=== PATIENT | male | born 1970 | race Caucasian/White ===

== ENCOUNTER 2020-04-20 12:17 | Outpatient (CLI) | payer MEDICARE, SELFPAY ==
--- NOTE | ~2020-04-20 | XR_ITS ---
XR knee RT 2V DATE: 04/20/2020 12:46 INDICATION: Right knee pain and locking for years TECHNIQUE: AP and lateral views COMPARISON: None FINDINGS: No fracture or dislocation or joint effusion. Joint spaces are well preserved. No radiopaqu e intra-articular loose body or, calcinosis. No periosteal reaction or bone destruction. IMPRESSION: Negative Reviewed, dictated and finalized at location B. IMPRESSION: Negative
--- NOTE | ~2020-04-20 | XR_ITS ---
XR knee LT 2V DATE: 04/20/2020 12:45 INDICATION: Left knee pain and locking for years TECHNIQUE: AP and lateral views COMPARISON: None FINDINGS: No fracture or dislocation or joint effusion. No periosteal reaction or bone destruction. N o radiopaque intra-articular loose body or chondral calcinosis. Joint spaces are well preserved. IMPRESSION: Negative Reviewed, dictated and finalized at location B. IMPRESSION: Negative
== END 2020-04-20 12:18 | disposition home or self-care (01) ==
LOC: CHSIMG 12:21
PROVIDERS: PCP Nurse Practitioner Family; Visit Provider Nurse Practitioner Family
DX: M25.562 Pain in left knee (principal); M25.561 Pain in right knee
CPT/HCPCS: 73560

== ENCOUNTER → 2020-12-12 08:44 | Outpatient (CLI) | payer MEDICARE, SELFPAY ==
--- NOTE | ~2020-12-12 | XR_ITS ---
XR chest 2V 12/12/2020 09:00 Indication: Cough. COPD. Smoker. Type 1 diabetes. Procedure: 2 view chest Comparison: 08/10/2018 Findings: Heart size normal. No focal air space disease, pulmonary edema, pleural effusion or suspect ed pneumothorax. There are healed right rib fractures with adjacent pleural thickening. There are spi nal stimulator leads, position unchanged. There is chronic apical pleural thickening. Impression: 1: No acute cardiopulmonary disease. Reviewed, dictated and finalized at location D. Impression: 1: No acute cardiopulmonary disease.
== END ==
PROVIDERS: PCP Nurse Practitioner; Visit Provider Nurse Practitioner
DX: R06.02 Shortness of breath (principal); R05 Cough
CPT/HCPCS: 71046

== ENCOUNTER 2021-08-01 08:18 | Outpatient (CLI) | payer MEDICARE, SELFPAY ==
--- NOTE | 2021-08-16 17:33 | WPDHOMESLEEP ---
Sleep Study - Home Unattended Date of Study: 08/01/21 <Monica Li DO - Last Filed: 08/16/21 17:51> Ordering Provider: Cheri King MD <Monica Li DO - Last Filed: 08/16/21 17:51> Interpreting Provider: Monica Li DO <Monica Li DO - Last Filed: 08/16/21 17:51> Home Sleep Study Type: Watch PAT <Monica Li DO - Last Filed: 08/16/21 17:51> Height: 1.75 m <Monica Li DO - Last Filed: 08/16/21 17:51> Weight: 110.223 kg <Monica Li DO - Last Filed: 08/16/21 17:51> Body Mass Index: 35.9 <Monica Li DO - Last Filed: 08/16/21 17:51> Neck Circumference (inches): 18 <Monica Li DO - Last Filed: 08/16/21 17:51> Sarles: 7 <Monica Li DO - Last Filed: 08/16/21 17:51> Reason for Sleep Study Daytime hypersomnia, sleep eating <Monica Li DO - Last Filed: 08/16/21 17:51> Sleep History The patient is a 50-year-old male with COPD, restless leg syndrome, type 2 diabetes, chronic back pain that had a home sleep test ordered by his legal billing coordinator for daytime hypersomnia and sleep eating. The patient frequently awakens from sleep short of breath. He rarely awakens at night with heartburn, belching or cough. He constantly snores loud enough that others complain. He frequently has trouble sleeping when he has a cold. He rarely wakes up gasping for air throughout the night. He rarely has breathing problems at night observed by others. He rarely sweats of us of Radha at night. He frequently notices heart palpitations or irregular heartbeats during the night. He frequently falls asleep during the day but never while driving. He denies sleep paralysis and cataplexy. He occasionally experiences vivid dreamlike scenes upon awakening or falling asleep. He occasionally has nightmares. He rarely has thoughts racing through his mind. He denies feeling sad, depressed or anxious. He denies noticing parts of his body jerk. He denies kicking throughout the night. He denies crawling and aching feelings in his legs. He frequently has leg pain during the night. He rarely grinds teeth during the night and never awakens with jaw pain in the morning. He is frequently bothered by pain during the day and constantly awakened by pain during the night. He constantly wakes up feeling stiff in morning with sore and achy muscles. He goes to bed at 8:30 p.m. on weekdays and 10:30 p.m. on weekends. It takes him between 1 and 2 hours to fall asleep. He typically wakes up 4 times per night. When he awakens, he will smoke a cigarette. It takes him 20-30 minutes to fall asleep. He awakens at 5:00 a.m. on the weekdays and 8:00 a.m. on the weekends. He typically gets 6 hours of sleep total throughout the night. He sleeps than 2 hours segments. He will lay in bed for a few minutes after awakening in the morning. He currently lives with his and 3 children. He does not consume any caffeinated beverages within 2 hours of bedtime. He does not engage in physical exercise before bedtime. He does watch television before falling asleep. He does take naps in the afternoon or the evening but they are not refreshing. He currently smokes 3 packs of cigarettes per day. He drinks 16 cups of a caffeinated beverage per day. He drinks 2 beers per day. He denies recreational drug use. <Monica Li DO - Last Filed: 08/16/21 17:51> [facility] Past Medical History Medical History: Medical History Chronic obstructive pulmonary disease, unspecified Lumbosacral radiculopathy due to degenerative joint disease of spine Obstructive sleep apnea syndrome in adult Restless leg syndrome Spinal cord stimulator status Type 2 diabetes mellitus with diabetic neuropathy, unspecified <Monica Li, DO - Last Filed: 08/16/21 17:51> Surgical History Rodrigo
[2021-08-16 17:51] VITALS: BMI 35.9
== END 2021-08-02 16:10 | disposition home or self-care (01) ==
LOC: ANHCSM 08:23
PROVIDERS: PCP Nurse Practitioner; Visit Provider Internal Medicine Critical Care Medicine
DX: G47.33 Obstructive sleep apnea (adult) (pediatric) (principal); Z87.821 Personal history of retained foreign body fully removed; Z87.891 Personal history of nicotine dependence; Z72.821 Inadequate sleep hygiene; G47.10 Hypersomnia, unspecified
CPT/HCPCS: 95800

== ENCOUNTER → 2021-08-06 10:44 | Outpatient (CLI) | payer MEDICARE, MEDICAID, SELFPAY ==
--- NOTE | ~2021-08-06 | CT_ITS ---
EXAMINATION: CT knee RT wo con DATE: 08/06/2021 11:08 INDICATION: Right knee pain. TECHNIQUE: Computed tomography (CT) of the right knee was performed without intravenous contrast. Aut omated exposure control and iterative reconstruction technique were employed. The dose-length product was 225.61 mGy-cm. COMPARISON: Right knee radiographs 04/20/2020 FINDINGS: Bone alignment is normal. No fracture. There is mild tricompartmental osteoarthritis charac terized by tiny marginal osteophytes. No joint space narrowing. There is mild osteoarthritis of proxi mal tibiofibular joint. There is a small knee joint effusion. There is trace fluid in a Dhillon's cyst. IMPRESSION: 1. Mild right knee osteoarthritis. 2. Small right knee joint effusion. Reviewed, dictated and finalized at location B. BRUSHER
== END ==
PROVIDERS: PCP Nurse Practitioner; Visit Provider Nurse Practitioner Family
DX: M17.11 Unilateral primary osteoarthritis, right knee (principal); M25.461 Effusion, right knee; M71.21 Synovial cyst of popliteal space [Baker], right knee
CPT/HCPCS: 73700

== ENCOUNTER 2022-09-17 09:15 | Outpatient (CLI) | payer MEDICARE, SELFPAY ==
[2022-09-17 18:56] LABS: Basophils Absolute Auto 0.2 K/mm3 (0.0-0.1); Basophils Percent Auto 1.2 % (0.2-1.2); Eosinophils Absolute Auto 0.8 K/mm3 (0-0.3); Eosinophils Percent Auto 5.8 % (0-4.4); Hematocrit 48.4 % (42.0-52.0); Hemoglobin 15.8 g/dL (14.0-18.0); Immature Granulocyte Absolute 0.05 K/mm3 (0.00-0.031); Immature Granulocyte Percent A 0.4 % (0-0.5); Lymphocytes Absolute Auto 2.39 K/mm3 (0.9-3.2); Lymphocytes Percent Auto 17.2 % (18.3-44.2); Mean Corpuscular HGB Conc 32.6 g/dl (32-36); Mean Corpuscular Hemoglobin 30.6 pg (26-34); Mean Corpuscular Volume 93.6 fl (80-100); Mean Platelet Volume 10.6 fl (7.4-10.4); Monocytes Absolute Auto 1.1 K/mm3 (0.1-0.6); Monocytes Percent Auto 8.1 % (2.6-8.5); Neutrophils Absolute Auto 9.4 K/mm3 (1.3-6.7); Neutrophils Percent Auto 67.3 % (45.5-73.1); Platelet Count Result 322 k/mm3 (150-375); Red Blood Count 5.17 M/mm3 (4.6-6.20); Red Cell Distribution Width 13.7 % (11.5-14.5); White Blood Count 13.9 K/mm3 (4.5-10.0)
[2022-09-17 20:04] LABS: Creatinine Urine 116.5 mg/dL
[2022-09-17 20:11] LABS: MALB Creatinine Ratio 16.1 mg/g (0-30); Microalbumin Urine Random 18.8 mg/L (0-16.7)
[2022-09-17 21:40] LABS: Alanine Aminotransferase 21 U/L (6-50); Albumin Level 4.3 g/dL (3.5-5.1); Alkaline Phosphatase 72 U/L (38-126); Anion Gap 9 mmol/L (8-16); Aspartate Amino Transferase 40 U/L (17-59); Bilirubin,Total 0.3 mg/dL (0.2-1.3); Blood Urea Nitrogen 15 mg/dL (9-20); Calcium 9.3 mg/dL (8.4-10.2); Carbon Dioxide 27 mmol/L (22-30); Chloride 101 mmol/L (98-107); Cholesterol 125 mg/dL (0-200); Estimated Glomerular Filt Rate > 60; Glucose 193 mg/dL (65-110); HDL Direct 35 mg/dL; Potassium 4.7 mmol/L (3.4-5.0); Sodium 137 mmol/L (137-145); Triglycerides 262 mg/dL (<150)
[2022-09-17 22:03] LABS: LDL Cholesterol Direct 48 mg/dL
[2022-09-17 22:25] LABS: Prostate Specific Antigen 0.8 ng/mL (< OR = 4.0)
== END 2022-09-17 09:16 | disposition home or self-care (01) ==
LOC: ANHGOSHLAB 09:17
PROVIDERS: PCP Family Medicine; Visit Provider Nurse Practitioner
DX: Z12.5 Encounter for screening for malignant neoplasm of prostate (principal); E11.9 Type 2 diabetes mellitus without complications; I10 Essential (primary) hypertension; E78.5 Hyperlipidemia, unspecified
CPT/HCPCS: 36415; 80053; 80061; 82043; 84153; 85025; G0103

== ENCOUNTER 2022-10-15 00:16 | Day surgery (SDC) | payer MEDICARE, SELFPAY ==
[2022-10-04 15:36] VITALS: BMI 34.2
[2022-10-15 10:15] LABS: Glucose Point of Care 123 mg/dl (65-105)
[2022-10-15 10:16] VITALS: BP 115/82; PULSE 120; RESP 97; TEMP 36.5; O2SAT 97
[2022-10-15] MEDS: LACTATED RINGERS 1,000 ML 150 ML IV CONT (10:19)
--- NOTE | 2022-10-15 10:54 | WPDANESEPPF ---
Anes - Initial Pre Proc Eval Procedure: Operation Date: 10/15/22 11:30 Proposed Procedures p Screening Colonoscopy - Michel Shelton MD Date/Time: 10/15/22 10:54 Surgeon: Michel Shelton MD Pre Op Diagnosis: neoplasm screening Patient Data Age: 52 Gender: M Height: 1.75 m Weight: 99.1 kg Last Vital Signs Temp 97.7 F 10/15/22 10:16 Pulse 120 H 10/15/22 10:16 Resp 97 H 10/15/22 10:16 BP 115/82 10/15/22 10:16 Pulse Ox 97 10/15/22 10:16 O2 Del Method Room Air 10/15/22 10:16 Allergies Allergy/AdvReac Type Severity Reaction Status Date / Time codeine AdvReac Intermediate vomitting Verified 10/15/22 10:13 Home Medications Medication Instructions Recorded Confirmed Type clobetasol 0.05 % topical ointment 1 applic topical BID PRN HIVES 09/22/19 10/15/22 History pregabalin 150 mg capsule (Lyrica) 150 mg PO BID 09/22/19 10/15/22 History cyclobenzaprine 10 mg tablet 10 mg PO Q8H 09/20/20 10/15/22 History pen needle, diabetic 32 gauge x #500 ea 09/21/20 10/15/22 Rx 5/32 (BD Ultra-Fine Rain Pen Needle) ipratropium bromide 17 1 puff inhalation QID #12.9 grams 01/17/21 10/15/22 Rx mcg/actuation HFA aerosol inhaler (Atrovent HFA) blood-glucose meter (OneTouch #1 ea 04/17/21 10/15/22 Rx Ultra2 Meter kit) lancets (OneTouch UltraSoft #400 ea 04/17/21 10/15/22 Rx Lancets) pen needle, diabetic 31 gauge x #400 ea 08/28/21 10/15/22 Rx 5/16 (Comfort EZ Pen [place]) albuterol sulfate 90 mcg/actuation 1 inh inhalation Q4H PRN shortness 09/18/21 10/15/22 Rx aerosol inhaler of breath or wheezing #6.7 grams tapentadol 100 mg tablet,extended 100 mg PO BID 09/18/21 10/15/22 History release,12 hr (Nucynta ER) naproxen 500 mg tablet 500 mg PO BID pain #180 tabs 03/12/22 10/15/22 Rx glucagon 1 mg solution for 2 mg subcut Q20M PRN Hypoglycemia 03/19/22 10/15/22 History injection (Glucagon Emergency Kit) tamsulosin 0.4 mg capsule (Flomax) 0.4 mg PO DAILY #30 caps 03/19/22 10/15/22 Rx dulaglutide 3 mg/0.5 mL 3 mg (0.5 mL) subcut WEEKLY 90 06/06/22 10/15/22 Rx subcutaneous pen injector days #6 mL (Trulicity) insulin glargine U-300 conc 300 50 unit (0.1667 mL) subcut DAILY 06/06/22 10/15/22 Rx unit/mL (3 mL) subcutaneous pen 90 days #18 mL (Toujeo Max U-300 SoloStar) lisinopril 10 mg tablet 10 mg PO DAILY 90 days #90 tabs 06/06/22 10/15/22 Rx metformin 500 mg tablet 1,000 mg PO DAILY 90 days #180 tabs 06/06/22 10/15/22 Rx simvastatin 40 mg tablet 40 mg PO DAILY 90 days #90 tabs 06/06/22 10/15/22 Rx duloxetine 20 mg capsule,delayed 20 mg PO BID #180 caps 09/03/22 10/15/22 Rx release dapagliflozin 10 mg tablet 10 mg PO QAM 90 days #90 tabs 09/10/22 10/15/22 Rx (Farxiga) naloxone 4 mg/actuation nasal 4 mg intranasal DIRECTED 10/04/22 10/15/22 History spray (Narcan) Laboratory Tests 10/15/22 10:11 POC Capillary Glucose 123 mg/dl H mg/dl (65-105) Patient hx anesthesia problems: none Family hx anesthesia problems: none Results Review: All pre-operative results and documents have been reviewed as part of the pre-operative evaluation. PENDING SALE TO [facility] Past Medical History Medical History Abnormal thyroid blood test Arthritis Back pain of lumbar region with sciatica Chronic fatigue Chronic obstructive pulmonary disease, unspecified Depressive disorder, not elsewhere classified Diabetic peripheral neuropathy Erectile dysfunction Falls frequently Hypertension Lumbosacral radiculopathy due to degenerative joint disease of spine Moderate episode of recurrent major depressive disorder Multilevel failed back syndrome Obesity, unspecified (02/28/16) Obstructive sleep apnea syndrome in adult Other and unspecified hyperlipidemia Other intervertebral disc displacement, lumbosacral region Restless leg syndrome Sleep disturbance Somnolence, daytime Type 2 diabetes mellitus with margoth
--- NOTE | 2022-10-15 11:22 | PM.HPGS ---
History of Present Illness History of Present Illness Consent: Risks, benefits, and alternatives have been discussed and questions answered. Patient agrees to proceed with procedure. Chief complaint: neoplasm screening Narrative: Jonathan Pandey is a 52 year old male here for first screening colonoscopy Review of Systems Constitutional: Constitutional: Denies headache(s) and Denies weakness Eyes: Eyes: Denies blurry vision ENT: Reports Normal hearing present, Denies headache(s) and Denies neck pain Cardiovascular: Cardiovascular: Denies chest pain and Denies dyspnea Respiratory: Respiratory: Denies dyspnea Gastrointestinal: Gastrointestinal: Reports no additional gastrointestinal complaints Genitourinary: Genitourinary: Denies dysuria Musculoskeletal: Musculoskeletal: Denies neck pain Integumentary/Breasts: Skin/Breast: Denies dry skin Neurologic: Reports Normal hearing present, Denies headache(s) and Denies weakness Psychiatric: Psychiatric: Denies anxiety Endocrine: Endocrine: Denies change in body appearance Hematologic/Lymphatic: Hematologic/Lymphatic: Denies easy bleeding Allergic/Immunologic: Allergic/Immunologic: Denies urticaria PMF Past Medical History Medical History (Updated 10/15/22 @ 11:22 by Michel Shelton MD) Abnormal thyroid blood test Arthritis Back pain of lumbar region with sciatica Chronic fatigue Chronic obstructive pulmonary disease, unspecified Colon cancer screening Depressive disorder, not elsewhere classified Diabetic peripheral neuropathy Erectile dysfunction Falls frequently Hypertension Lumbosacral radiculopathy due to degenerative joint disease of spine Moderate episode of recurrent major depressive disorder Multilevel failed back syndrome Obesity, unspecified (02/28/16) Obstructive sleep apnea syndrome in adult Other and unspecified hyperlipidemia Other intervertebral disc displacement, lumbosacral region Restless leg syndrome Sleep disturbance Somnolence, daytime Type 2 diabetes mellitus with diabetic neuropathy, unspecified Surgical History Surgical History H/O spinal fusion History of back surgery prachi in back and spacer in front History of cholecystectomy Spinal cord stimulator status Family History Family History Father Family history of lung cancer Other Depression Diabetes mellitus Family history of Alzheimer's disease Family history of alcoholism Family history of arthritis Family history of hearing loss Family history of obesity Family history of thyroid disease Hypertension Social History Social History Smoking packs per day: 2 Smoking cigarettes per day: 40.0 Years smoked: 42 Smoking pack-years: 84.00 Smoking status: Current every day smoker Tobacco type: cigarettes Alcohol intake: former Substance use: never Substance use type: does not use Lack of Transportation: No Lack of Food: Sometimes True Current Housing: I Have Housing Concerned About Future Housing: No Difficulty Paying Gas/Electric Bills: No Difficulty Paying for Meds: No Currently Unemployed: YES Education: Decline to Answer Difficulty w/ Childcare or Family Care: No Living arrangements: with family Occupation/Education: retired Gender identity (if verbalized by the patient): Male Spiritual care concerns: No Agree to blood products: Yes Meds Home Medications and Allergies Home Medications Medication Instructions Recorded Confirmed Type clobetasol 0.05 % topical ointment 1 applic topical BID PRN HIVES 09/22/19 10/15/22 History pregabalin 150 mg capsule (Lyrica) 150 mg PO BID 09/22/19 10/15/22 History cyclobenzaprine 10 mg tablet 10 mg PO Q8H 09/20/20 10/15/22 History pen needle, diabetic 32 gauge x #500 ea 09/21/20 10/15/22 Rx (BD Ultr
[2022-10-15 11:49] VITALS: BP 117/80; PULSE 121; RESP 22; O2SAT 96
[2022-10-15 11:59] VITALS: BP 124/77; PULSE 103; RESP 17; O2SAT 95
[2022-10-15 12:09] VITALS: BP 126/70; PULSE 100; RESP 17; O2SAT 96
== END 2022-10-15 12:15 | disposition home or self-care (01) ==
PROVIDERS: PCP Family Medicine; Visit Provider Internal Medicine Gastroenterology
PROC: 0DJD8ZZ Inspection of Lower Intestinal Tract, Via Natural or Artificial Opening Endoscopic (ICD-10-PCS; CPT 45378; principal; 2022-10-15 11:30)
DX: Z12.11 Encounter for screening for malignant neoplasm of colon (principal); D12.2 Benign neoplasm of ascending colon; D12.8 Benign neoplasm of rectum; K64.8 Other hemorrhoids; J44.9 Chronic obstructive pulmonary disease, unspecified; F32.A Depression, unspecified; E11.42 Type 2 diabetes mellitus with diabetic polyneuropathy; I10 Essential (primary) hypertension; G47.33 Obstructive sleep apnea (adult) (pediatric); E78.49 Other hyperlipidemia; G25.81 Restless legs syndrome; Z79.51 Long term (current) use of inhaled steroids; Z79.4 Long term (current) use of insulin; Z79.84 Long term (current) use of oral hypoglycemic drugs; Z98.1 Arthrodesis status; E66.9 Obesity, unspecified; Z68.32 Body mass index [BMI] 32.0-32.9, adult; F17.210 Nicotine dependence, cigarettes, uncomplicated
CPT/HCPCS: 45385; 82948; 88305; J2704; J7120

== ENCOUNTER 2023-03-19 09:24 | Outpatient (CLI) | payer MEDICARE, SELFPAY ==
[2023-03-19 18:44] LABS: Basophils Absolute Auto 0.1 K/mm3 (0.0-0.1); Basophils Percent Auto 0.7 % (0.2-1.2); Eosinophils Absolute Auto 0.4 K/mm3 (0-0.3); Eosinophils Percent Auto 3.9 % (0-4.4); Hematocrit 51.2 % (42.0-52.0); Hemoglobin 16.8 g/dL (14.0-18.0); Immature Granulocyte Absolute 0.02 K/mm3 (0.00-0.031); Immature Granulocyte Percent A 0.2 % (0-0.5); Lymphocytes Absolute Auto 2.46 K/mm3 (0.9-3.2); Lymphocytes Percent Auto 25.6 % (18.3-44.2); Mean Corpuscular HGB Conc 32.8 g/dl (32-36); Mean Corpuscular Hemoglobin 31.4 pg (26-34); Mean Corpuscular Volume 95.7 fl (80-100); Mean Platelet Volume 11.4 fl (7.4-10.4); Monocytes Absolute Auto 0.9 K/mm3 (0.1-0.6); Monocytes Percent Auto 9.5 % (2.6-8.5); Neutrophils Absolute Auto 5.8 K/mm3 (1.3-6.7); Neutrophils Percent Auto 60.1 % (45.5-73.1); Platelet Count Result 239 k/mm3 (150-375); Red Blood Count 5.35 M/mm3 (4.6-6.20); Red Cell Distribution Width 14.4 % (11.5-14.5); White Blood Count 9.6 K/mm3 (4.5-10.0)
[2023-03-19 18:47] LABS: Alanine Aminotransferase 32 U/L (6-50); Albumin Level 4.2 g/dL (3.5-5.1); Alkaline Phosphatase 66 U/L (38-126); Anion Gap 5 mmol/L (8-16); Aspartate Amino Transferase 30 U/L (17-59); Bilirubin,Total 0.4 mg/dL (0.2-1.3); Blood Urea Nitrogen 15 mg/dL (9-20); Calcium 9.1 mg/dL (8.4-10.2); Carbon Dioxide 29 mmol/L (22-30); Chloride 103 mmol/L (98-107); Cholesterol 107 mg/dL (0-200); Estimated Glomerular Filt Rate > 60; Glucose 134 mg/dL (65-110); HDL Direct 30 mg/dL; Potassium 4.2 mmol/L (3.4-5.0); Sodium 137 mmol/L (137-145); Triglycerides 193 mg/dL (<150)
[2023-03-19 18:58] LABS: LDL Cholesterol Direct 47 mg/dL
[2023-03-19 19:18] LABS: Prostate Specific Antigen 0.8 ng/mL (< OR = 4.0)
[2023-03-19 19:26] LABS: Hemoglobin A1C 6.6 % (<5.7)
== END 2023-03-19 09:25 | disposition home or self-care (01) ==
LOC: ANHGOSHLAB 09:26
PROVIDERS: PCP Family Medicine; Visit Provider Nurse Practitioner Family
DX: I10 Essential (primary) hypertension (principal); Z79.4 Long term (current) use of insulin; E11.65 Type 2 diabetes mellitus with hyperglycemia; Z13.220 Encounter for screening for lipoid disorders; N40.1 Benign prostatic hyperplasia with lower urinary tract symptoms; R35.1 Nocturia; Z13.29 Encounter for screening for other suspected endocrine disorder
CPT/HCPCS: 36415; 80053; 80061; 83036; 84153; 84443; 85025; G0103

== ENCOUNTER 2023-09-22 08:19 | Outpatient (CLI) | payer MEDICARE, SELFPAY ==
[2023-09-22 13:37] LABS: Alanine Aminotransferase 30 U/L (6-50); Albumin Level 4.1 g/dL (3.5-5.1); Alkaline Phosphatase 96 U/L (38-126); Anion Gap 10 mmol/L (8-16); Aspartate Amino Transferase 27 U/L (17-59); Bilirubin,Total 0.7 mg/dL (0.2-1.3); Blood Urea Nitrogen 19 mg/dL (9-20); Calcium 9.3 mg/dL (8.4-10.2); Carbon Dioxide 26 mmol/L (22-30); Chloride 97 mmol/L (98-107); Cholesterol 211 mg/dL (0-200); Estimated Glomerular Filt Rate > 60; Glucose 355 mg/dL (65-110); HDL Direct 27 mg/dL; Potassium 4.5 mmol/L (3.4-5.0); Sodium 133 mmol/L (137-145)
[2023-09-22 13:42] LABS: LDL Cholesterol Direct 60 mg/dL
[2023-09-22 13:43] LABS: Creatinine Urine 33.4 mg/dL
[2023-09-22 13:45] LABS: Free T4 Free Thyroxine 1.16 ng/mL (0.78-2.19); Vitamin D 25 Hydroxy 32.1 ng/mL
[2023-09-22 14:28] LABS: MALB Creatinine Ratio < 18.0 mg/g (0-30); Microalbumin Urine Random < 6.0 mg/L (0-16.7)
[2023-09-22 14:43] LABS: Triglycerides 981 mg/dL (<150)
== END 2023-09-22 08:20 | disposition home or self-care (01) ==
LOC: ANHGOSHLAB 08:21
PROVIDERS: PCP Family Medicine; Visit Provider Nurse Practitioner Family
DX: E11.65 Type 2 diabetes mellitus with hyperglycemia (principal); I10 Essential (primary) hypertension; E55.9 Vitamin D deficiency, unspecified; E78.5 Hyperlipidemia, unspecified; Z79.4 Long term (current) use of insulin
CPT/HCPCS: 36415; 80053; 80061; 82043; 82306; 82607; 84439; 84443

== ENCOUNTER → 2023-09-22 08:43 | Outpatient (CLI) | payer OTHER, SELFPAY ==
--- NOTE | ~2023-09-22 | XR_ITS ---
Lumbosacral Spine: AP and lateral views Clinical History: Pain COMPARISON: 05/03/2014 Findings: Spinal fixation hardware from L5 to S1 anteriorly and posteriorly is stable from prior exam , as is disc fusion device at L5-S1 level. There is moderate degenerative disc change at L3-L4 and L4 -L5. Neurostimulator device is present. The sacroiliac joints are normally outlined. Impression: Stable fusion from L5 to S1. Moderate degenerative disc narrowing at L3-L4 and L4-L5, progressed from prior exam. Reviewed, dictated and finalized at location M. [facility] [employer] Impression: Stable fusion from L5 to S1. Moderate degenerative disc narrowing at L3-L4 and L4-L5, progressed from prior exam.
== END ==
PROVIDERS: PCP Nurse Practitioner Family; Visit Provider Nurse Practitioner Family
DX: M51.36 Other intervertebral disc degeneration, lumbar region (principal); Z98.1 Arthrodesis status; Y99.0 Civilian activity done for income or pay
CPT/HCPCS: 72100

== ENCOUNTER 2023-10-17 14:40 | Outpatient (CLI) | payer OTHER, SELFPAY ==
--- NOTE | ~2023-10-17 | CT_ITS ---
EXAMINATION: CT lumbar spine wo con DATE: 10/17/2023 15:02 INDICATION: Lumbar radiculopathy. TECHNIQUE: Computed tomography (CT) of the lumbar spine was performed without intravenous contrast. A utomated exposure control and iterative reconstruction technique were employed. The dose-length produ ct was 987.22 mGy-cm. COMPARISON: CT lumbar spine 11/06/2014 FINDINGS: Bone alignment is normal. Vertebral body heights are normal. There are changes of anterior and posterior fusion procedures at L5-S1 with interbody device, anterior plate and screws, and pedicl e screws. There is severely decreased disc height at L3-L4 and L4-L5. The following disc levels are s pecifically discussed: L1-L2: The disc does not extend beyond the endplate margin. There is mild right and moderate left fac et joint osteoarthritis. There is no neural foraminal stenosis. There is no central canal stenosis. L2-L3: The disc does not extend beyond the endplate margin. There is mild bilateral facet joint osteo arthritis. There is no neural foraminal stenosis. There is no central canal stenosis. L3-L4: The disc is bulging. There is moderate bilateral facet joint osteoarthritis. There is mild danuta ateral neural foraminal stenosis. There is mild central canal stenosis. L4-L5: The disc is bulging. There is severe bilateral facet joint osteoarthritis. There is moderate b ilateral neural foraminal stenosis. There is moderate central canal stenosis. L5-S1: There is mild bilateral facet joint hypertrophy. There is mild bilateral neural foraminal sten osis. There is mild central canal stenosis. IMPRESSION: 1. Severe lumbar spondylosis, worsened from 11/06/2014. 2. Anterior and posterior fusion procedures at L5-S1. Reviewed, dictated and finalized at location A. STILE COLLECTOR
== END 2023-10-17 14:41 ==
PROVIDERS: PCP Nurse Practitioner Family; Visit Provider Nurse Practitioner Family
DX: M47.26 Other spondylosis with radiculopathy, lumbar region (principal); Z98.1 Arthrodesis status
CPT/HCPCS: 72131

== ENCOUNTER 2024-02-11 15:46 | Outpatient (CLI) | payer MEDICARE, SELFPAY ==
--- NOTE | ~2024-02-11 | XR_ITS ---
EXAM: XR_KNEE1-2VRT_CR, XR_KNEE1-2VLT_CR DATE: 02/11/2024 16:07 (accession [id number]), 02/11/2024 16:06 (accession [id number]) HISTORY: Left and right knee pain . COMPARISON: None available. FINDINGS: Normal mineralization. No fracture or dislocation. No lytic or blastic lesion. Mild bilate ral medial joint space narrowing. Mild tricompartmental osteophytosis, slightly worse on the right. M inimal bilateral enthesopathy at the tibial tuberosities. No erosion or periosteal change. Moderate v olume right knee joint fluid. IMPRESSION: Mild bilateral tricompartmental knee osteoarthritis, slightly worse on the right. Moderat e right knee joint effusion. Reviewed, dictated and finalized at location K. IMPRESSION: Mild bilateral tricompartmental knee osteoarthritis, slightly worse on the right. Moderate right knee joint effusion.
== END 2024-02-11 15:47 ==
LOC: MICIMG 15:48
PROVIDERS: PCP Nurse Practitioner Family; Visit Provider Nurse Practitioner Family
DX: M17.0 Bilateral primary osteoarthritis of knee (principal); M25.461 Effusion, right knee
CPT/HCPCS: 73560

== ENCOUNTER 2024-03-01 07:19 | Outpatient (CLI) | payer MEDICARE, SELFPAY ==
--- NOTE | ~2024-03-01 | XR_ITS ---
EXAMINATION: XR thoracic spine 2V DATE: 03/01/2024 08:38 INDICATION: Midthoracic spine pain TECHNIQUE: AP and lateral views of the thoracic spine were obtained. COMPARISON: 12/09/2017 FINDINGS: Alignment is normal. Vertebral body heights are normal. Multilevel mild disc height loss with minimal degenerative endplate changes throughout the mid to lower thoracic spine. Lower thoracic spinal stim ulator with leads projecting over the posterior central canal with distal tip at the level of T8-T9. Visualized portion of lungs are clear with no pulmonary edema, pleural effusion or pneumothorax. Hear t size is normal. IMPRESSION: 1. Mild thoracic spondylosis with stable appearance of a lower thoracic spinal stimulator. Reviewed, dictated and finalized at location A.
== END 2024-03-01 07:20 ==
PROVIDERS: PCP Nurse Practitioner Family; Visit Provider Nurse Practitioner Family
DX: M47.894 Other spondylosis, thoracic region (principal)
CPT/HCPCS: 72070

== ENCOUNTER 2024-04-30 11:06 | Emergency (ER) | payer MEDICARE, SELFPAY ==
--- NOTE | ~2024-04-30 | XR_ITS ---
EXAMINATION: XR elbow LT min 3V DATE: 04/30/2024 12:46 INDICATION: Left elbow pain. Fall. TECHNIQUE: 4 views of left elbow were obtained. COMPARISON: None. FINDINGS: Bone alignment is normal. No fracture. Joint spaces are normal. No elbow joint effusion. Th ere is soft tissue swelling overlying the olecranon. IMPRESSION: 1. No fracture. Reviewed, dictated and finalized at location A. IMPRESSION: 1. No fracture.
[2024-04-30 11:17] VITALS: BP 149/89; PULSE 101; RESP 18; TEMP 36.3; O2SAT 98
--- NOTE | 2024-04-30 11:21 | PC.NURSE ---
Ice pack provided
--- NOTE | 2024-04-30 13:16 | ED.GENADULT ---
HPI - General Adult General Chief complaint: Extremity Injury, Upper Stated complaint: left elbow injury Time Seen by Provider: 04/30/24 12:35 History of Present Illness HPI narrative: This is a 53-year-old male with history of pain presenting with elbow pain. Patient fell 3 days ago landing on his left elbow. Since then he has developed soft tissue swelling. No pain on movement. It is painful to the touch over the medial epicondyle. No warmth, redness or fevers. No history of gout. Related Data Home Medications Medication Instructions Recorded Confirmed pregabalin 150 mg capsule (Lyrica) 150 mg PO BID 09/22/19 03/23/24 cyclobenzaprine 10 mg tablet 10 mg PO Q8H 09/20/20 03/23/24 tapentadol 100 mg tablet,extended 100 mg PO BID 09/18/21 03/23/24 release,12 hr (Nucynta ER) naloxone 4 mg/actuation nasal 4 mg intranasal DIRECTED 10/04/22 03/23/24 spray (Narcan) dapagliflozin propanediol 10 mg 10 mg PO DAILY 03/23/24 03/23/24 tablet (Farxiga) Allergies Allergy/AdvReac Type Severity Reaction Status Date / Time codeine AdvReac Intermediate vomitting Verified 03/23/24 15:49 sulfa AdvReac Mild Other Uncoded 03/23/24 15:39 PMFSH Past Medical History Medical History Abnormal thyroid blood test Arthritis Back pain of lumbar region with sciatica Chronic fatigue Chronic obstructive pulmonary disease, unspecified Colon cancer screening Depressive disorder, not elsewhere classified Diabetic peripheral neuropathy Erectile dysfunction Falls frequently High blood triglycerides Hypertension Lumbosacral radiculopathy due to degenerative joint disease of spine Moderate episode of recurrent major depressive disorder Multilevel failed back syndrome Obesity, unspecified (02/28/16) Obstructive sleep apnea syndrome in adult Other and unspecified hyperlipidemia Other intervertebral disc displacement, lumbosacral region Restless leg syndrome [id number] intellectual disability Sleep disturbance Somnolence, daytime Type 2 diabetes mellitus with diabetic neuropathy, unspecified Work related injury Surgical History Surgical History H/O spinal fusion History of back surgery prachi in back and spacer in front History of cholecystectomy Spinal cord stimulator status Family History Family History Father Family history of lung cancer Other Depression Diabetes mellitus Family history of Alzheimer's disease Family history of alcoholism Family history of arthritis Family history of hearing loss Family history of obesity Family history of thyroid disease Hypertension Social History Social History Smoking packs per day: 1.5 Smoking cigarettes per day: 30.0 Years smoked: 42 Smoking pack-years: 63.00 Smoking status: Current every day smoker Tobacco type: cigarettes Alcohol intake: former Substance use: never Substance use type: does not use Lack of Transportation: No Lack of Food: Sometimes True Current Housing: I Have Housing Concerned About Future Housing: No Difficulty Paying Gas/Electric Bills: YES Difficulty Paying for Meds: YES Currently Unemployed: Decline to Answer Education: Grade School Difficulty w/ Childcare or Family Care: No Living arrangements: with family Occupation/Education: retired Gender identity (if verbalized by the patient): Male Spiritual care concerns: No Agree to blood products: Yes Exam Narrative: APPEARANCE: No apparent distress. Head: atraumatic. EYES: EOMI, NOSE: Atraumatic NECK: Trachea midline RESPIRATORY: No increased rate of breathing CARDIOVASCULAR: RRR, ABDOMINAL: Non-distended MUSCULOSKELETAl: Focal exam revealed soft tissue swelling around the left elbow. Point tenderness along the medial epicondyle. N
[2024-04-30] MEDS: KETOROLAC 30 MG/ML VIAL (*BKC) IM (13:24)
[2024-04-30] MEDS: ACETAMINOPHEN 500 MG TABLET 1000 MG PO (13:25)
[2024-04-30 13:28] VITALS: BP 149/104; PULSE 101; RESP 16; TEMP 36.4; O2SAT 100
== END 2024-04-30 13:36 | disposition home or self-care (01) ==
PROVIDERS: Emergency Provider Emergency Medicine; PCP Nurse Practitioner Family
DX: S59.902A Unspecified injury of left elbow, initial encounter (principal); J44.9 Chronic obstructive pulmonary disease, unspecified; E11.42 Type 2 diabetes mellitus with diabetic polyneuropathy; I10 Essential (primary) hypertension; G47.33 Obstructive sleep apnea (adult) (pediatric); G25.81 Restless legs syndrome; R53.82 Chronic fatigue, unspecified; M19.90 Unspecified osteoarthritis, unspecified site; F17.210 Nicotine dependence, cigarettes, uncomplicated; Z98.1 Arthrodesis status; Z96.82 Presence of neurostimulator; Z79.899 Other long term (current) drug therapy; Z90.49 Acquired absence of other specified parts of digestive tract; W19.XXXA Unspecified fall, initial encounter
CPT/HCPCS: 73080; 96372; 99283; A9270; J1885

== ENCOUNTER 2024-06-23 11:22 | Outpatient (CLI) | payer MEDICARE, SELFPAY ==
[2024-06-23 17:10] LABS: Cholesterol 216 mg/dL (0-200)
[2024-06-23 17:16] LABS: Triglycerides 947 mg/dL (<150); Vitamin D 25 Hydroxy 28.6 ng/mL
[2024-06-23 17:23] LABS: Prostate Specific Antigen 1.5 ng/mL (< OR = 4.0)
[2024-06-23 17:24] LABS: Hemoglobin A1C 10.4 % (<5.7)
[2024-06-24 12:09] LABS: LDL Cholesterol Direct 58 mg/dL
== END 2024-06-23 11:23 | disposition home or self-care (01) ==
LOC: ANHGOSHLAB 11:23
PROVIDERS: PCP Nurse Practitioner Family; Visit Provider Nurse Practitioner Family
DX: E11.9 Type 2 diabetes mellitus without complications (principal); E55.9 Vitamin D deficiency, unspecified; Z12.5 Encounter for screening for malignant neoplasm of prostate; E78.5 Hyperlipidemia, unspecified
CPT/HCPCS: 36415; 80061; 82306; 83036; 84153; 84443; G0103

== ENCOUNTER 2025-01-10 13:42 | Outpatient (CLI) | payer MEDICARE, SELFPAY ==
--- OUTSIDE RECORDS SUMMARY | 2025-01-10 15:34 | XMS_ITS | Clinical Summary ---
Author Organization [facility] Address [address] [place] [address] Care Team Providers Care Director Of Loss Prevention Name Role Phone Kendy Carrillo NP Primary Care Provider + Allergies Active Allergy Reactions Criticality Noted Date Comments Codeine Vomiting Low 05/07/2024 Dulaglutide Other (See comments) Low 05/07/2024 Burping sulfa Medications diclofenac sodium 3 % gel Apply 1 Application topically 2 (two) times a day Apply to area twice daily as directed. Collaborating physician Reagan Rocha MD 200 g 1 4 Active cyclobenzaprin e (FLEXERIL) 10 mg tablet Take 1 tablet (10 mg total) by mouth 3 (three) times a day as needed [address] (CYMBALTA) 20 mg capsule Take 1 capsule (20 mg total) by mouth 2 (two) times a day 4 Active naproxen (NAPROSYN) 500 mg tablet Take 1 tablet (500 mg total) by mouth 2 (two) times a day with meals 4 Active pregabalin (LYRICA) 150 mg capsule Take 1 capsule (150 mg total) by mouth 2 (two) times a day 4 Active Nucynta ER 100 mg 12 hr tablet Take 1 tablet (100 mg total) by mouth every 12 (twelve) hours 4 Active Active Problems Problem Noted Date Diagnosed Date Olecranon bursitis of left elbow 05/07/2024 Surgical History Surgery Date Site/Laterality Comments BACK SURGERY Medical History Medical History Date Comments Diabetes mellitus (HCC) Family History Medical History Relation Name Comments Arthritis Other Gout Other Relation Name Status Comments Other Social History Tobacco Use Types Packs/Day Years Used Date Smoking Tobacco: Every Day Cigarettes Tobacco Cessation:Ready to Q uit: Not Asked; Counseling Given: Not Answered Personal Safety Answer Date Recorded Have you ever been in or are you currently in a harmful physical or emotional relationship or is someone making you feel afraid or unsafe? 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 Gender Identity Not on file Sexual Orientation Not on file Obstetrics History Last Filed Vital Signs Vital Sign Reading Time Taken Comments Blood Pressure 153/76 06/02/2024 10:55 AM CDT Pulse 57 06/02/2024 10:55 AM CDT Temperature 36.6 C (97.9 F) 05/07/2024 12:30 PM CDT Respiratory Rate 18 05/07/2024 3:16 PM CDT Oxygen Saturation 98% 05/07/2024 3:16 PM CDT Inhaled Oxygen Concentration - - Weight 97.5 kg (215 lb) 06/02/2024 10:55 AM CDT Height 182.9 cm (6') 06/02/2024 10:55 AM CDT Body Mass Index 29.16 06/02/2024 10:55 AM CDT Plan of Treatment Health Maintenance Due Date Last Done Comments Colon Cancer Screening-Colonoscopy 1971 Depression Screening 1971 Hepatitis C Screening 1971 Prostate Cancer Screening-PSA 1971 DTaP/Tdap/Td Vaccine (1 - Tdap) 1982 Hepatitis B Screening 1989 Regular Well Visit/Exam 18-64 1989 Pneumococcal vaccine <65 (1 of 2 - PCV) 1990 Zoster Vaccine (1 of 2) 2021 Influenza Vaccine (#1) 2024 [place] [address] Care Teams Director Of Loss Prevention Relationship Specialty Start Date End Date Kendy Carrillo NP [address] [place] [address] [address] PCP - General Nurse Practitioner 05/07/24
--- OUTSIDE RECORDS SUMMARY | 2025-01-10 15:34 | XMS_ITS | Referral Summary ---
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
--- OUTSIDE RECORDS SUMMARY | 2025-01-10 15:34 | XMS_ITS | Continuity of Care Document ---
Author Organization [facility] Address [address] [place] [address] Phone Care Team Providers Care Industrial Economics Professor Name Role Phone Kushal Hsieh MD, FACS Unavailable Unavailab le Advance Directives Directive Yes / No Effective Date File Name No Information Encounters Encounter Description Practice Location Reason(s) For Visit Diagnoses Date Provider Providers Copied on Encounter [facility], [address], [place], [place], [id number], tel:[phone] [facility] No Information [id number] Fatima. [address] [facility], [address], [place], [place], [id number], . tel:[phone] Family History Family Member Type Diagnosis Age At Onset No Information Payers Payer name Insurance type Covered libertarian ID Authoriza tienriqueta(s) [facility] CI [id number] Social History Type Description Quantity Date Captured Comments Sex Male Smoking Status No Information Chief Complaint And Reason For Visit No Information Reason For Referral Reason For Referral No Information History Of Present Illness Encounter Date Complaint History Of Prese nt Illness No Information Functional Status Date Functional Assessmen t No Information Instructions Date Instruction Additional Infor mation No Information Assessments Type Assessment Date No Information Patient Care Teams Name Effective Dates (start - stop) Status Members No Information
--- OUTSIDE RECORDS SUMMARY | 2025-01-10 15:34 | XMS_ITS | Clinical Summary ---
Author Organization [facility] Address Pending sale to [facility] [place] [address] Care Team Providers Care Oracle Database Developer Name Role Phone Unavailable Primary Care Provider Unavailabl e Social History Tobacco Use Types Packs/Day Years Used Date Smoking Tobacco: Never Assessed Sex and Gender Information Value Date Recorded Sex Assigned at Not on file Legal Sex Male 5:42 PM CDT Gender Identity Not on file Sexual Orientation Not on file Last Filed Vital Signs Vital Sign Reading Time Taken Comments Blood Pressure 148/78 05/12/2012 9:57 AM CDT Pulse 76 05/12/2012 9:57 AM CDT Temperature - - Respiratory Rate - - Oxygen Saturation - - Inhaled Oxygen Concentration - - Weight 97.5 kg (215 lb) 05/12/2012 9:57 AM CDT Height 185.4 cm (6' 1 ) 05/12/2012 9:57 AM CDT Body Mass Index 28.37 05/12/2012 9:57 AM CDT Plan of Treatment Health Maintenance Due Date Last Done Comments Colorectal Cancer Screening Colonoscopy (10 Years) 1971 Annual Physical 1974 Hepatitis C 1989 DTaP, Tdap and Td Vaccines ( 1 - Tdap) 1990 Hepatitis B Vaccines (1 of 3 - 19+ 3-dose series) 1990 Pneumococcal Vaccine: 50+ Ye ars (1 of 1 - PCV) 2021 Zoster Vaccines (1 of 2) 2021 COVID-19 Vaccine ( - 2023-2 5 season) 2024 Meningococcal B Vaccine Aged Out No l onger eligible based on patient's age to complete this topic Meningococcal Vaccine Aged Out No belgica susana eligible based on patient's age to complete this topic RSV Immunizations Under 20 Months Aged Out No longer eligible based on patient's age to complete this topic
[2025-01-10 19:20] LABS: Basophils Absolute Auto 0.1 K/mm3 (0.0-0.1); Eosinophils Absolute Auto 0.3 K/mm3 (0-0.3); Eosinophils Percent Auto 3.3 % (0-4.4); Hematocrit 54.6 % (42.0-52.0); Immature Granulocyte Absolute 0.02 K/mm3 (0.00-0.031); Immature Granulocyte Percent A 0.2 % (0-0.5); Lymphocytes Absolute Auto 2.31 K/mm3 (0.9-3.2); Lymphocytes Percent Auto 24.4 % (18.3-44.2); Mean Corpuscular Hemoglobin 31.3 pg (26-34); Monocytes Percent Auto 10.5 % (2.6-8.5); Neutrophils Absolute Auto 5.7 K/mm3 (1.3-6.7); Neutrophils Percent Auto 60.6 % (45.5-73.1); Platelet Count Result 265 k/mm3 (150-375); Red Blood Count 5.75 M/mm3 (4.6-6.20); Red Cell Distribution Width 13.3 % (11.5-14.5); White Blood Count 9.5 K/mm3 (4.5-10.0)
[2025-01-10 19:28] LABS: Alanine Aminotransferase 20 U/L (6-50); Albumin Level 4.5 g/dL (3.5-5.1); Alkaline Phosphatase 64 U/L (38-126); Anion Gap 9 mmol/L (4-12); Aspartate Amino Transferase 25 U/L (17-59); Bilirubin,Total 0.3 mg/dL (0.2-1.3); Blood Urea Nitrogen 33 mg/dL (9-20); Calcium 9.2 mg/dL (8.4-10.2); Carbon Dioxide 27 mmol/L (22-30); Chloride 103 mmol/L (98-107); Cholesterol 135 mg/dL (0-200); Estimated Glomerular Filt Rate > 60; Glucose 218 mg/dL (65-110); HDL Direct 43 mg/dL; Potassium 4.2 mmol/L (3.4-5.0); Sodium 139 mmol/L (137-145); Triglycerides 236 mg/dL (<150)
[2025-01-10 19:30] LABS: Vitamin D 25 Hydroxy 34.3 ng/mL
[2025-01-10 19:35] LABS: Creatinine Urine 52.8 mg/dL
[2025-01-10 19:39] LABS: LDL Cholesterol Direct 53 mg/dL
[2025-01-10 20:30] LABS: MALB Creatinine Ratio < 11.4 mg/g (0-30); Microalbumin Urine Random < 6.0 mg/L (0-16.7)
[2025-01-11 00:59] LABS: Hemoglobin A1C 8.2 % (<5.7)
== END 2025-01-10 13:43 | disposition home or self-care (01) ==
LOC: ANHGOSHLAB 13:42
PROVIDERS: PCP Family Medicine; Visit Provider Nurse Practitioner Family
DX: E78.5 Hyperlipidemia, unspecified (principal); I10 Essential (primary) hypertension; E11.9 Type 2 diabetes mellitus without complications; E55.9 Vitamin D deficiency, unspecified
CPT/HCPCS: 36415; 80053; 80061; 82043; 82306; 83036; 85025

== ENCOUNTER 2025-07-12 08:07 | Outpatient (CLI) | payer MEDICARE, SELFPAY ==
--- OUTSIDE RECORDS SUMMARY | 2025-07-12 08:18 | XMS_ITS | Clinical Summary ---
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 [address] [address] PCP - General Nurse Practitioner 05/07/24
[2025-07-12 13:06] LABS: Alanine Aminotransferase 24 U/L (6-50); Albumin Level 4.4 g/dL (3.5-5.1); Alkaline Phosphatase 65 U/L (38-126); Anion Gap 10 mmol/L (4-12); Aspartate Amino Transferase 39 U/L (17-59); Bilirubin,Total 0.5 mg/dL (0.2-1.3); Blood Urea Nitrogen 22 mg/dL (9-20); Calcium 9.5 mg/dL (8.4-10.2); Carbon Dioxide 25 mmol/L (22-30); Chloride 102 mmol/L (98-107); Cholesterol 94 mg/dL (0-200); Estimated Glomerular Filt Rate > 60; Glucose 173 mg/dL (65-110); HDL Direct 30 mg/dL; Potassium 4.2 mmol/L (3.4-5.0); Sodium 137 mmol/L (137-145); Total Protein 7.6 g/dL (6.3-8.2); Triglycerides 135 mg/dL (<150)
[2025-07-12 13:23] LABS: MALB Creatinine Ratio 20.4 mg/g (0-30)
[2025-07-12 13:27] LABS: Free T4 Free Thyroxine 1.25 ng/dL (0.78-2.19)
[2025-07-12 13:42] LABS: Thyroid Stimulating Hormone 1.770 uIU/mL (0.465-4.680)
[2025-07-12 14:01] LABS: Vitamin B12 457.0 pg/mL (239-931)
[2025-07-13 04:02] LABS: Prostate Specific Antigen 1.5 ng/mL (< OR = 4.0)
[2025-07-18 15:09] LABS: GAD-65 Antibody <5.0 U/mL (0.0-5.0)
== END 2025-07-12 08:08 | disposition home or self-care (01) ==
PROVIDERS: Nurse Practitioner Family; PCP Family Medicine; Visit Provider Nurse Practitioner Family
DX: E11.40 Type 2 diabetes mellitus with diabetic neuropathy, unspecified (principal); I10 Essential (primary) hypertension; E11.65 Type 2 diabetes mellitus with hyperglycemia; E78.5 Hyperlipidemia, unspecified; E55.9 Vitamin D deficiency, unspecified; Z12.5 Encounter for screening for malignant neoplasm of prostate; Z79.4 Long term (current) use of insulin
CPT/HCPCS: 36415; 80053; 80061; 82043; 82306; 82607; 84153; 84439; 84443; 84681; 86341; G0103